=== PATIENT | female | born 1990 | race Hispanic/Latino ===

== ENCOUNTER 2016-03-20 18:31 | Inpatient (IN) | payer MEDICAID ==
[~2016-03-20] VITALS: Ht 154.9 cm; Wt 42.8 kg
[2016-03-20] MEDS ORDERED: LORAZEPAM 2 MG/ML VIAL IM PRN (23:00)
[2016-03-20] MEDS ORDERED: DIPHENHYDRAMINE 50 MG/ML VIAL IM PRN (23:00)
[2016-03-20] MEDS ORDERED: ALU/MAG/SIM 30 ML UDC PO PRN (23:00)
[2016-03-20] MEDS ORDERED: TRAZODONE 50 MG TAB PO PRN (23:00)
[2016-03-20] MEDS ORDERED: DIPHENHYDRAMINE 50 MG CAP PO PRN (23:00)
[2016-03-20] MEDS ORDERED: HALOPERIDOL 5 MG/ML VIAL IM PRN (23:00)
[2016-03-20] MEDS ORDERED: ACETAMINOPHEN 325 MG TAB PO PRN (23:00)
[2016-03-20] MEDS ORDERED: MAG HYDROX 30 ML UDC PO PRN (23:00)
[2016-03-20] MEDS ORDERED: HALOPERIDOL 5 MG TAB PO PRN (23:00)
[2016-03-20] MEDS ORDERED: LORAZEPAM 2 MG TAB PO PRN (23:00)
[2016-03-20 23:58] VITALS: BP_SYST 108; RESP 18; TEMP 98.6; BMI 17.8
[2016-03-21] MEDS ORDERED: *PINK BRACELET XX ONE (02:55)
[2016-03-21] MEDS: [UNRECOGNIZED DRUG - OTHER] XX SCH ×2 (08:00→20:00)
[2016-03-21] MEDS: NICOTINE 21 MG/24 HR TRANSDERM SCH ×3 (08:11→17:25)
[2016-03-21 10:17] VITALS: Ht 154.9 cm; Wt 42.8 kg
[2016-03-21] MEDS: BUPROPION XL 150 MG TAB PO SCH (12:03)
[2016-03-21 13:20] VITALS: BP_SYST 125; RESP 16; TEMP 98.6
[2016-03-21 19:00] VITALS: BP_SYST 123; RESP 18; TEMP 98.6
[2016-03-22] MEDS: [UNRECOGNIZED DRUG - OTHER] XX SCH (08:31)
[2016-03-22] MEDS: NICOTINE 21 MG/24 HR TRANSDERM SCH (09:00)
[2016-03-22 09:14] VITALS: BP_SYST 112; RESP 16; TEMP 98.7
[2016-03-22] MEDS: BUPROPION XL 150 MG TAB PO SCH (09:30)
[2016-03-22] MEDS ORDERED: LEVOFLOXACIN 250 MG TAB PO SCH (11:10)
[2016-03-22] MEDS ORDERED: MISSING DOSE XX ONE (13:10)
[2016-03-22 13:17] VITALS: BP_SYST 112; RESP 16; TEMP 98.7
[2016-03-22 14:39] VITALS: BP_SYST 112; RESP 16; TEMP 98.7
== END 2016-03-22 14:41 | disposition home or self-care (01) | DRG 881 ==
LOC: ER 18:31 → EMR 22:46 → PSY 23:18
PROVIDERS: ADMIT Psychiatry & Neurology Psychiatry; ATTEND Psychiatry & Neurology Psychiatry
DX: F32.9 Major depressive disorder, single episode, unspecified (principal); F11.20 Opioid dependence, uncomplicated; N39.0 Urinary tract infection, site not specified; F13.20 Sedative, hypnotic or anxiolytic dependence, uncomplicated; F10.20 Alcohol dependence, uncomplicated; F12.20 Cannabis dependence, uncomplicated; Z91.410 Personal history of adult physical and sexual abuse; F17.210 Nicotine dependence, cigarettes, uncomplicated
CPT/HCPCS: 36415; 80053; 80307; 80320; 80329; 81001; 84439; 84443; 84703; 85025; 85610; 87077; 87088; 87186